=== PATIENT | female | born 1970 | race Caucasian/White ===

== ENCOUNTER 2022-08-10 12:36 | Outpatient (CLI) | payer BC ==
[2022-08-10 13:17] LABS: Hemoglobin 13.2 g/dL (12.0-15.5); Mean Corpuscular HGB CONC 31.9 g/dL (32.0-36.0); Mean Corpuscular Hemoglobin 28.8 pg (27.0-33.0); Mean Corpuscular Volume 90.4 fl (81.6-98.3); Mean Platelet Volume 11.6 fl (7.4-10.4); Platelet Count 253 10x3/uL (150-450); RBC Distribution Width 13.2 % (11.5-14.5); Red Blood Cell (RBC) Count 4.58 10x6/uL (3.90-5.03); White Blood Cell (WBC) Count 7.4 10x3/uL (3.5-10.5)
[2022-08-10 13:41] LABS: Anion Gap 13 mmol/L (10-20); BUN (Urea Nitrogen) 19 mg/dL (9.8-20.1); Calc. Creatinine Clearance 0 mL/min (70-130); Calcium 9.4 mg/dL (7.8-10.44); Carbon Dioxide 28 mmol/L (22-29); Chloride 103 mmol/L (98-107); Estimated GFR 84; Glucose 92 mg/dL (70-105); Potassium 4.4 mmol/L (3.5-5.1); Sodium 140 mmol/L (136-145)
== END 2022-08-10 12:37 | disposition home or self-care (01) ==
LOC: CSHLAB 12:36
PROVIDERS: ATTEND Podiatrist Foot & Ankle Surgery
DX: Z01.812 Encounter for preprocedural laboratory examination (principal); M77.41 Metatarsalgia, right foot; S93.144A Subluxation of metatarsophalangeal joint of right lesser toe(s), initial encounter
CPT/HCPCS: 80048; 85027

== ENCOUNTER 2022-08-17 10:11 | Day surgery (SDC) | payer BC ==
[2022-08-15 11:02] VITALS: BMI 24.3
[2022-08-17] MEDS ORDERED: Bupivacaine PF 0.5% 30 ML VIAL ONE (11:48)
[2022-08-17] MEDS ORDERED: CEFAZOLIN 2 GM VIAL ONE (11:52)
[2022-08-17] MEDS ORDERED: Clindamycin/D5W 600 mg/50 ml Premix Bag ONE (12:13)
[2022-08-17] MEDS ORDERED: Fentanyl 100 MCG/2 ML VIAL ONE (12:17)
[2022-08-17] MEDS ORDERED: PROPOFOL 20 ML ONE (12:17)
[2022-08-17] MEDS ORDERED: Midazolam HCl 2 mg/2 ml Vial ONE (12:17)
[2022-08-17] MEDS ORDERED: Dexamethasone 20 MG/5 ML VIAL ONE (12:18)
[2022-08-17] MEDS ORDERED: Ketorolac Tromethamine 30 MG/ML VIAL ONE (12:18)
[2022-08-17] MEDS ORDERED: Ondansetron PF 4 MG/2 ML Vial ONE (12:18)
[2022-08-17] MEDS ORDERED: Glycopyrrolate 0.2 MG/ML 5 ML SYRINGE ONE (12:21)
[2022-08-17] MEDS ORDERED: HYDROcodone/Acetaminophen 5/325 mg Tablet ONE (14:21)
== END 2022-08-17 15:10 | disposition home or self-care (01) ==
LOC: CSHSDC 10:11
PROVIDERS: ATTEND Podiatrist Foot & Ankle Surgery
PROC: 0QBN0ZZ Excision of Right Metatarsal, Open Approach (ICD-10-PCS; principal; 2022-08-17)
DX: S93.144D Subluxation of metatarsophalangeal joint of right lesser toe(s), subsequent encounter (principal); M77.41 Metatarsalgia, right foot; G43.909 Migraine, unspecified, not intractable, without status migrainosus; Z79.899 Other long term (current) drug therapy; Z88.0 Allergy status to penicillin; Z88.2 Allergy status to sulfonamides
CPT/HCPCS: C1713; J1100; J1885; J2250; J2405; J2704; J3010; J3490; S0020